=== PATIENT | male | born 1945 | race Hispanic/Latino ===

== ENCOUNTER → 2024-10-01 | Day surgery (SDC) | payer MEDICARE ==
[~2024-10-01] MED LIST: AMLODIPINE BESY10 MG PO; ATORVASTATIN CA20 MG PO; AVODART0.5 MG PO; EPHEDRINE SULFATE INJ 50 MG/ML VIAL ONE; FARXIGA5 MG PO; FENTANYL CITRATE/PF 100MCG/2 ML INJ ONE; FLOMAX0.4 MG PO; HYDROCHLOROTH12.5 MG; LIDOCAINE HCL 2% LOCAL INJ 5 ML SDV VIAL INJ ONE; LOSARTAN POTAS100 MG PO; METFORMIN HCL500 MG PO; METOCLOPRAMIDE HCL 10 MG/2ML VIAL ONE; ONDANSETRON HCL INJ 2MG/ML 2ML 2 MG/ML VIAL ONE; PHENAZOPYRIDINE HCL 100 MG TAB ONE; PROPOFOL IV EMULSION 10 MG/ML 20 ML VIAL ONE; ROCURONIUM BROMIDE 0 ML IV ONE
[2024-10-01] MEDS: CEFTRIAXONE 1 GM VIAL ONE (11:57)
[2024-10-01] MEDS: SODIUM CHLORIDE 0.9% 1000ML 1,000 ML ONE (11:59)
[2024-10-01 12:03] LABS: BASOPHILS % 0.4 % (0.0-1.0); EOSINOPHILS % 4.4 % (0.0-6.0); LYMPHOCYTES % 22.4 % (18.0-39.1); MONOCYTES % 6.6 % (4.4-11.3); NEUTROPHILS % 65.7 % (38.7-80.0); RED CELL DISTRIBUTION WIDTH 12.8 % (11.7-14.4)
[2024-10-01 12:25] LABS: INR 0.9
[2024-10-01 12:29] LABS: EST GLOMERULAR FILTRATION RATE 43.0 ML/MIN (>=60)
[2024-10-01 17:30] VITALS: BP 141/73; PULSE 75; RESP 18; O2SAT 98
== END | disposition home or self-care (01) ==
LOC: OR 10:52
PROVIDERS: ATTEND Urology
DX: N32.3 Diverticulum of bladder (principal); N30.21 Other chronic cystitis with hematuria; N32.89 Other specified disorders of bladder; N40.3 Nodular prostate with lower urinary tract symptoms; N13.8 Other obstructive and reflux uropathy; R33.8 Other retention of urine; N39.41 Urge incontinence; R35.0 Frequency of micturition; E11.22 Type 2 diabetes mellitus with diabetic chronic kidney disease; I12.9 Hypertensive chronic kidney disease with stage 1 through stage 4 chronic kidney disease, or unspecified chronic kidney disease; N18.9 Chronic kidney disease, unspecified; Z79.899 Other long term (current) drug therapy
CPT/HCPCS: 36415; 52204; 52005; 71046; 74420; 80053; 82948; 85025; 85610; 85730; 87086; 88305; 93005; C1758; J0696; J2003; J2405; J2704; J2765; J3010; J7030